=== PATIENT | male | born 1945 | race Caucasian/White ===

== ENCOUNTER 2017-03-20 12:43 | Day surgery (SDC) | payer MEDICARE ==
--- NOTE | ~2017-03-20 | EGD ---
EGD REPORT [facility] [address] [place] [address] NAME: ROBERT SMITH SR : [birth year] STATUS : [place] [facility] [place] [id number] AGE: 71 ADM/REG DATE : 03/20/17 MR#: [id number] REPORT SERV DATE: 03/20/17 DICTATED BY: PORSHA GRAHAM DATE: 03/20/17 REPORT STATUS : Draft TRANSCRIBED BY: [facility] DATE: 03/20/17 [facility] Patient Name: Robert Smith Sr Date of : 1945 Attending MD: PORSHA GRAHAM MD Procedure Date No Time: 03/20/2017 Procedure: Colonoscopy Indications: Screening in patient at increased risk: Colorectal cancer in mother 60 or older, Last colonoscopy: date unknown Referring MD: MIRNA ALAN Medicines: See the Anesthesia note for documentation of the administered medications Complications: No immediate complications. Procedure: Pre-Anesthesia Assessment: - ASA Grade Assessment: II - A patient with mild systemic disease. After I obtained informed consent, the scope was passed under direct vision. Throughout the procedure, the patient's blood pressure, pulse, and oxygen saturations were monitored continuously. The CF [id number] was introduced through the anus and advanced to the cecum, identified by appendiceal orifice and ileocecal valve. The colonoscopy was performed without difficulty. The patient tolerated the procedure well. The quality of the bowel preparation was adequate. Findings: The perianal and digital rectal examinations were normal. Internal hemorrhoids were found during retroflexion and were medium-sized. A sessile polyp was found in the proximal ascending colon. The polyp was 10 mm in size. The polyp was removed with a hot snare. Resection and retrieval were complete. A sessile polyp was found in the ascending colon. The polyp was 8 mm in size. The polyp was removed with a cold snare. Resection and retrieval were complete. A sessile polyp was found in the ascending colon. The polyp was small in size. The polyp was removed with a cold biopsy forceps. Resection and retrieval were complete. A sessile polyp was found in the rectum. The polyp was small in size. The polyp was removed with a cold biopsy forceps. Resection and retrieval were complete. Impression: - Internal hemorrhoids. EGD REPORT [address] [address] NAME: ROBERT SMITH SR : [birth year] STATUS : REG [facility]#: [id number] AGE: 71 ADM/REG DATE : 03/20/17 MR#: [id number] REPORT SERV DATE: 03/20/17 DICTATED BY: PORSHA GRAHAM DATE: 03/20/17 REPORT STATUS : Draft TRANSCRIBED BY: [employer] DATE: 03/20/17 - One 10 mm polyp in the proximal ascending colon. Resected and retrieved. - One 8 mm polyp in the ascending colon. Resected and retrieved. - One small polyp in the ascending colon. Resected and retrieved. - One small polyp in the rectum. Resected and retrieved. Recommendation: - Patient has a contact number available for emergencies. The signs and symptoms of potential delayed complications were discussed with the patient. Return to normal activities tomorrow. Written discharge instructions were provided to the patient. - Regular diet. - Continue present medications. - Repeat colonoscopy for surveillance based on pathology results. - FOR YOUR BIOPSY RESULTS: Please go to [email or web address] [email or web address] and register to receive your results via the portal. Your biopsy results will be posted there in about 7 to 10 days. IF you do not see result in 10 days, call office. Procedure Code(s): --- Professional --- 77058, Colonoscopy, flexible, proximal to splenic flexure; with removal of tumor(s), polyp(s), or other lesion(s) by snare technique 56925, 59, Colonoscopy, flexible, proximal to splenic flexure; with biopsy, single or multiple Diagnosis Code(s): --- Professional --- K64.8, Other hemorrhoids K62.1, Rectal polyp D12.2, Benign neoplasm of ascending colon Z12.11, Encounter for screening for malignant neoplasm of colon Z80.0, Family history of malignant neoplasm of digestive organs CPT copyright 2013 [employer]. All rights reserved. The codes documented in this report are preliminary and upon pillow cleaner review may be revised to meet current compliance requirements. Porsha Graham MD EGD REPORT [facility] [address] [place] [address] NAME: CARA CORRALROBERT MOULTON : [birth year] [place]US [place] [facility] [place] [id number] AGE: 71 ADM/REG DATE : 03/20/17 MR#: [id number] REPORT SERV DATE: 03/20/17 DICTATED BY: PORSHA GRAHAM DATE: 03/20/17 REPORT STATUS : Draft TRANSCRIBED BY: [employer] DATE: 03/20/17 PORSHA GRAHAM MD 03/20/2017 3:17 PM This report has been signed electronically. Number of Addenda: 0 Note Initiated On: 03/20/2017 2:00 PM Scope Withdrawal Time 0 hours 20 minutes 47 seconds [facility] [place] [address]
[~2017-03-20 12:43] MED LIST: FIBERCON PO; FLOMAX4 PO; GLUCCHONDR PO; LYSINE1000 MG OR; METAMUCIL CAN7 OZ PO; PRAVACHOL40 MG PO; VITAMIN B-121000 MC1 SL; VITAMIN B-625 MG OR; VITE PO; [UNRECOGNIZED DRUG - OTHER]; [UNRECOGNIZED DRUG - OTHER] PO
== END 2017-03-20 23:59 | disposition home or self-care (01) ==
LOC: DMU 12:43
PROVIDERS: Internal Medicine Gastroenterology
PROC: 0DBK8ZZ Excision of Ascending Colon, Via Natural or Artificial Opening Endoscopic (ICD-10-PCS; principal; 2017-03-20 14:30)
PROC: 0DBP8ZZ Excision of Rectum, Via Natural or Artificial Opening Endoscopic (ICD-10-PCS; 2017-03-20 14:30)
DX: Z12.11 Encounter for screening for malignant neoplasm of colon (principal); Z80.0 Family history of malignant neoplasm of digestive organs; D12.2 Benign neoplasm of ascending colon; K51.40 Inflammatory polyps of colon without complications; K62.1 Rectal polyp; K64.8 Other hemorrhoids; N40.0 Benign prostatic hyperplasia without lower urinary tract symptoms; E78.00 Pure hypercholesterolemia, unspecified; Z98.41 Cataract extraction status, right eye; Z98.42 Cataract extraction status, left eye; Z96.1 Presence of intraocular lens; Z98.890 Other specified postprocedural states; Z96.652 Presence of left artificial knee joint; Z90.89 Acquired absence of other organs; Z87.442 Personal history of urinary calculi; Z79.2 Long term (current) use of antibiotics; Z79.899 Other long term (current) drug therapy
CPT/HCPCS: 88305